=== PATIENT | male | born 1995 | race Caucasian/White ===

== ENCOUNTER 2016-12-02 08:31 | Emergency (ER) | payer OTHER ==
[~2016-12-02] VITALS: Ht 185.4 cm; Wt 74.8 kg
[2016-12-02] MEDS ORDERED: KETOROLAC TROME10 MG PO (10:28)
[2016-12-03] MEDS ORDERED: NORCO 5-325 TA1 EACH PO (04:50)
[2016-12-03] MEDS ORDERED: DOXYCYCLINE HY100 MG PO (04:50)
== END 2016-12-02 10:39 | disposition home or self-care (01) ==
LOC: ED 08:31
DX: N50.812 Left testicular pain (principal); N50.811 Right testicular pain; K40.90 Unilateral inguinal hernia, without obstruction or gangrene, not specified as recurrent
CPT/HCPCS: 76870; 80053; 81001; 85025; 96374; 99284; J1885; J7030

== ENCOUNTER 2016-12-03 01:40 | Emergency (ER) | payer OTHER ==
[~2016-12-03] VITALS: Ht 185.4 cm; Wt 74.8 kg
[~2016-12-03 01:40] MED LIST: KETOROLAC TROME10 MG PO
[2016-12-03] MEDS ORDERED: DOXYCYCLINE HY100 MG PO (04:50)
[2016-12-03] MEDS ORDERED: NORCO 5-325 TA1 EACH PO (04:50)
== END 2016-12-03 05:00 | disposition home or self-care (01) ==
LOC: ED 01:40
DX: N45.1 Epididymitis (principal); F17.200 Nicotine dependence, unspecified, uncomplicated
CPT/HCPCS: 74177; 85025; 96361; 96374; 96375; 99284; J2270; J2405; J7030; Q9967